=== PATIENT | female | born 1990 | race Caucasian/White ===

== ENCOUNTER 2022-09-17 07:39 | Emergency (ER) | payer BC, SELFPAY ==
[2022-09-17 07:40] VITALS: BP 110/64; PULSE 122; RESP 22; TEMP 36.8; O2SAT 100; BMI 23.3
--- NOTE | 2022-09-17 07:52 | EDS_ITS ---
HPI HPI - Female History of Present Illness Chief Complaint: Vag Bld, Preg Informant: patient Pain Pain: Positive for Pelvic Pain Onset: Yesterday Context: Sudden Onset Timing: Intermittent Quality: Positive for Cramping Location: RLQ, LLQ, Suprapubic and Back Worsened by: - (Nothing) Relieved by: - (Warm bath) Bleeding Issue: Positive for Vaginal bleeding Onset: Yesterday Context: Gradual Onset Current Severity: Similar to period Maximum Severity: Similar to period Associated Symptoms Associated Symptoms: Negative for Dysuria, Frequency or Hematuria Test: Positive P: 1 Ab: 0 Narrative Narrative: Patient presents with vaginal bleeding and pelvic pain that began yesterday. Patient describes her pain as cramping. Patient states that has been intermittent. Patient states that when it began yesterday was constant for several hours then improved. Patient states it has been intermittent since that time. Patient states her pain is in her lower back and pelvic area. Patient states he did get a little bit better with a warm bath. Patient states she has been having some vaginal bleeding that is similar to her normal menstrual period. Patient is 2 para 1. Patient states she is approximately 13 weeks . PFSH PFSH Medical History no medical history no medical history Home Medications vitamin-ferrous fumarate 40 mg iron-folic acid 1 mg tablet 1 tab PO DAILY 09/17/22 [History Last Taken Unknown] Allergy/AdvReac Type Severity Reaction Status Date / Time Penicillins AdvReac Hives Verified 09/17/22 07:42 Family History no significant family his Surgical History (Updated 09/17/22 @ 07:[address] Dariel Castellano DO) H/O section Surgical History no surgical history Social History Smoking Status: Never smoker ROS ROS ED Constitutional Constitutional ED: Reports chills and subjective; Denies fever(s) Eyes Eyes: Denies blurry vision or change in vision ENT ENT ED: Denies rhinorrhea or sore throat Cardiovascular Cardiovascular: Denies chest pain or palpitations Respiratory/Chest Respiratory/Chest: Reports cough; Denies dyspnea Gastrointestinal Gastrointestinal: Reports abdominal pain; Denies nausea or vomiting Genitourinary Genitourinary ED: Denies dysuria or hematuria Musculoskeletal Musculoskeletal: Reports back pain; Denies neck pain Integumentary Denies abscess or rash Neurologic Neurologic: Denies headache(s) or weakness Allergic/Immunologic Allergic/Immunologic ED: Denies mouth swelling or urticaria EXAM Physical Exam Const Vital Signs: 09/17/22 07:40 09/17/22 09:51 Temperature 98.2 F Temperature Source Temporal Pulse Rate 122 H 110 H Respiratory Rate 22 H 18 Blood Pressure 110/64 108/62 Blood Pressure Mean 79 77 Pulse Ox 100 98 Oxygen Delivery Method Room Air Room Air Positive well nourished and well developed General Appearance ED: well developed HEENT Reports moist mucous membranes Neck supple and no JVD Resp normal respiratory effort and clear to auscultation bilaterally Cardio regular rate, regular rhythm and no murmurs GI normal to inspection, nondistended, normoactive bowel sounds Palpation: soft and tender LLQ, RLQ and suprapubic; Negative for guarding Extremity normal to inspection General Extremety ED: Negative for edema or tenderness General Extremity: Negative for edema Neuro oriented x3, CN's II-XII intact bilaterally and no sensory deficits noted Sensorium / Orientation: alert Motor Exam: strength 5/5 throughout Psych mental status grossly normal Skin no rashes or lesions noted MDM MDM MDM Narrative Medical decision making narrative: Differential diagnosis includes threatened miscarriage, urinary tract infection, and hemorrhagic cystitis. CBC will be obtained to assess for leukocytosis and anemia. Urinalysis will be obtained to assess for urinary tract infection or hematuria. Blood type and Rh will be obtained to assess for Rh status. Pelvic ultrasound will be obtained to assess for viability. Quantitative hCG will be obtained to assess for status. Lab Data Attestation: I reviewed the patient's lab results. Lab results narrative: CBC was reviewed and showed a mild leukocytosis of 13.3. This is likely due to the . Blood type was reviewed and was O+. Quantitative hCG was reviewed and was 62,173. Urinalysis was reviewed. Ketones were 150. Leukocyte esterase was 500. There were 5-10 white blood cells but 5-10 epithelial cells. There is 1+ bacteria. Urine culture was ordered. Labs: Laboratory Results - last 24 hr 09/17/22 09/17/22 09/17/22 07:55 07:55 07:55 WBC 13.3 H RBC 4.34 Hgb 13.5 Hct 39.6 MCV 91.2 MCH 31.1 MCHC 34.1 RDW Std Deviation 41.1 RDW Coeff of Gildardo 12.4 Plt Count 191 MPV 10.2 Immature Gran % (Auto) 0.600 Neut % (Auto) 84.5 H Lymph % (Auto) 8.7 L [place] % (Auto) 5.8 Eos % (Auto) 0.2 Baso % (Auto) 0.2 Absolute Neuts (auto) 11.2 H Absolute Lymphs (auto) 1.15 Nucleated RBC % 0 HCG, Quant 53771 H Urine Color Urine Clarity Urine pH Ur Specific [place] Urine Protein Urine Glucose (UA) Urine Ketones Urine Occult Blood Urine Nitrite Urine Bilirubin Urine Urobilinogen Ur Leukocyte Esterase Urine RBC Urine WBC Ur Squamous Epith Cells Urine Bacteria Urine Mucus Blood Type O POSITIVE 09/17/22 08:45 WBC RBC Hgb Hct MCV MCH MCHC RDW Std Deviation RDW Coeff of Gildardo Plt Count MPV Immature Gran % (Auto) Neut % (Auto) Lymph % (Auto) [place] % (Auto) Eos % (Auto) Baso % (Auto) Absolute Neuts (auto) Absolute Lymphs (auto) Nucleated RBC % HCG, Quant Urine Color Yellow Urine Clarity Clear Urine pH 6.0 Ur Specific [place] 1.015 Urine Protein 15 H Urine Glucose (UA) Normal Urine Ketones 150 A* Urine Occult Blood 250 H Urine Nitrite Negative Urine Bilirubin Negative Urine Urobilinogen Normal Ur Leukocyte Esterase 500 H Urine RBC 0-5 SEEN Urine WBC 5-10 SEEN Ur Squamous Epith Cells 5-10 SEEN Urine Bacteria 1+ Urine Mucus 0 SEEN Blood Type Radiography Diagnostic Testing: Clinical Impression(s) from Imaging Studies Obstetrics Ultrasound 09/17/22 07:59 IMPRESSION: Single living intrauterine with an estimated gestational age of 13 weeks 4 days. No placenta previa. Closed cervix. Electronically Signed: Elen Lanza MD at 9:59 EDT , Pelvic ultrasound was obtained. There is a single living intrauterine with a gestational age of 13 weeks 4 days. Cervix was closed. There is no placenta previa. heart rate was 162. This was interpreted by the radiologist and was also independently reviewed by myself. Management Discussion w/another healthcare provider: Threshing Department Supervisor (Dr. Frias who was covering for Dr. Donahue) Treatment and Re-Evaluation Narrative: Patient was advised of her findings. Patient was instructed to have complete pelvic rest. Case was discussed with Dr. Jenifer Frias from [facility]. She will follow-up with the patient in the office next week. She will also follow-up with the urine culture results. Patient was instructed to return if worse in any way. Patient understood and was agreeable with the plan. All questions were answered. Discharge Plan Triage Chief Complaint: Vag Bld, Preg ED Provider: Dariel Castellano Dx/Rx/DC Orders Clinical Impression: Threatened miscarriage, Instructions: ED Possible Miscarriage ... Prescriptions: No Action Care 40 mg iron-1 mg Tablet 1 tab PO DAILY Primary Care Provider: Care Physician,No Primary Referrals: Monet Bain MD [Med Staff - Active Staff] - 2 Days Disposition Disposition: Home, Self Care
--- NOTE | 2022-09-17 07:59 | US_ITS ---
HISTORY: Threatened miscarriage. LMP: 06/15/2022. TECHNIQUE: Transabdominal pelvic ultrasound was performed. 118 images. COMPARISON: None. FINDINGS: UTERUS: 12.8 x 7.9 x 9.9 cm. CERVIX: Closed. RIGHT OVARY: 1.6 x 2.9 x 2.9 cm with vascular flow demonstrated. No adnexal masses. LEFT OVARY: 1.4 x 1.7 x 1.4 cm with vascular flow demonstrated. No adnexal masses. FREE FLUID: None. INTRAUTERINE GESTATIONAL SAC: Single, unremarkable contour. Mean sac diameter 6.8 cm corresponding to 13 weeks 2 days. POLE: [place]-rump length 7.5 cm corresponding to 13 weeks 4 days. Estimated delivery date 03/22/2023. HEART MOTION: 162 bpm. PLACENTA: Anterior. No placenta previa. US/Init OB < 14Wks US IMPRESSION: Single living intrauterine with an estimated gestational age of 13 weeks 4 days. No placenta previa. Closed cervix. Electronically Signed: Elen Lanza MD at 9:59 EDT ,
[2022-09-17] MEDS: 0.9% Normal Saline 1,000 ML 1000 ML IV (08:05)
[2022-09-17 08:12] LABS: Absolute Lymphocyte Count 1.15 X10^3/uL (0.83-4.51); Absolute Neutrophil Count 11.2 X10^3/uL (2.0-7.7); Basophil# 0.02 X10^3/uL; Basophil% 0.2 % (0-1); Eosinophil# 0.02 X10^3/uL; Eosinophils% 0.2 % (0-5); Hematocrit 39.6 % (37-47); Hemoglobin 13.5 g/dL (12.0-15.0); Lymphocyte # 1.15 X10^3/ul (0.83-4.51); Lymphocyte % 8.7 % (19-41); Mean Corp Hgb Conc 34.1 g/dL (32-36); Mean Corpuscular Hgb 31.1 pg (27.0-32.0); Mean Corpuscular Volume 91.2 fL (81-99); Mean Platelet Vol. 10.2 fl (6.2-12.0); Monocyte# 0.77 X10^3/uL; Monocyte% 5.8 % (0-10); NRBC Flagged by Analyzer 0 % (0-5); Neutrophil # 11.23 X10^3/uL (2.7-7.7); Neutrophil % 84.5 % (47-70); Platelet Count 191 K/mm3 (150-450); RBC Distribution Width CV 12.4 % (11.6-14.6); RBC Distribution Width SD 41.1 fl (35.1-43.9); Red Blood Count 4.34 M/mm3 (4.2-5.4); White Blood Count 13.3 K/mm3 (4.4-11.0)
[2022-09-17] MEDS: Morphine 4 MG/ML Syringe IV (08:46)
[2022-09-17 08:49] LABS: Mucous, Urine 0 SEEN /hpf (<or=2+)
[2022-09-17 08:52] LABS: hCG Titer Quant., Serum 62173 mIU/mL (1-3)
[2022-09-17 09:18] LABS: Glucose, Dipstick Normal (Normal); Leukocyte Esterase-Dipstick 500 /ul (Negative); Nitrite-Dipstick Negative (Negative); Occult Blood-Urine 250 /ul (Negative); Protein-Dipstick 15 mg/dl (Negative); Specific Gravity, Urine 1.015 (1.002-1.030); Urine Bilirubin Dipstick Negative (Negative); Urine Urobilinogen Normal (Normal)
[2022-09-17 09:19] LABS: Color, Urine Yellow (Yellow); Urine Clarity Clear (Clear)
[2022-09-17 09:22] LABS: Ketone-Dipstick 150 mg/dl (Negative)
[2022-09-17 09:43] LABS: Bacteria 1+ /hpf (None Seen); Red Blood Cells-Urine 0-5 SEEN /hpf (0-5); Squamous Epithelial Cells - UA 5-10 SEEN /hpf (5-10); White Blood Cells 5-10 SEEN /hpf (0-5)
[2022-09-17 09:51] VITALS: BP 108/62; PULSE 110; RESP 18; O2SAT 98
[2022-09-17] MEDS: Acetaminophen 500 MG Tablet 1000 MG PO (10:44)
--- NOTE | 2022-09-17 10:51 | ED.RN ---
chargeback specialist called OB RN for reassurance to provide to patient and . pt and are appreciative of care.
== END 2022-09-17 10:53 | disposition home or self-care (01) ==
PROVIDERS: Emergency Provider Emergency Medicine; Visit Provider Emergency Medicine
DX: O20.0 Threatened abortion (principal); Z3A.13 13 weeks gestation of pregnancy
CPT/HCPCS: 76801; 81001; 84702; 85025; 86900; 86901; 87086; 87088; 96361; 96374; 99284; J7030; A4216

== ENCOUNTER 2022-09-18 04:05 | Day surgery (SDC) | payer BC, SELFPAY ==
[2022-09-18] VITALS (10 sets, daily range): BP systolic 81–125; BP diastolic 48–89; PULSE 76–123; RESP 14–18; TEMP 36.2–37.4; O2SAT 97–100; BMI 23.8
--- NOTE | 2022-09-18 | POC_PTH ---
PATIENT: DEREK FLOOD LOC: [facility] [place] U#:[id number] AGE/SX: 31/F ROOM: RE09/18/[address]: Dr. Monet Bain, MDDOB: 1990 BED: DIS: 09/18/2022 SPEC #: [id number] RECD: 09/18/22 10:10 STATUS: VETO JOSE #: [id number] MONIQUE: 09/18/22 00:[address]: Monet Bain DEPT: SURGICAL PATHOLOGY RECD BY: Mele Zhang ENTERED: 09/18/22 10:10 SP TYPE: PROD CONC OTHR DR: No Primary Care Phys Tissues: Product of conception, NOS Procedures: Surgery Specimen Level IV HEADER OPERATION: Suction dilation and curettage PRE-OP DIAGNOSIS: Retained products of conception TISSUE SUBMITTED: Products of conception MICROSCOPIC DIAGNOSIS Endometrium, curettage: Chorionic villi, decidualized stroma and trophoblastic cells consistent with products of conception. AM:piyush 09/19/2022 MICROSCOPIC DESCRIPTION Slides are reviewed. GROSS DESCRIPTION Received in fixative is one container labeled with the patient's name and designated products of conception. The specimen consists of multiple irregular fragments of pink-elliott soft tissue that in aggregate measure 12.0 x 7.0 x 2.0 cm. parts are not grossly recognized. Toilet And Laundry Soap Supervisor portions are submitted in two cassettes. / AM:piyush 09/18/2022 TC:5 CPT: 09031
--- NOTE | 2022-09-18 04:34 | US_ITS ---
EXAM: US , LIMITED CLINICAL INDICATION: and bleeding -- 13 weeks with pain and bleeding TECHNIQUE: Real-time limited ultrasound of the maternal uterus with image documentation. This report was created using [employer] report generation technology. COMPARISON: US Limited dated 09/17/2022 FINDINGS: GESTATIONAL AGE: Established gestational age of 13 weeks 4 days. POSITION: Single fetus in cephalic presentation. HEART RATE: cardiac rate is 164 bpm. PLACENTA: Anterior placenta without previa. AMNIOTIC FLUID: Amniotic fluid volume is normal. CERVIX: Cervix measures approximately 1.2 cm in length by endovaginal scan with funneling of the endocervical canal indicative of incompetent cervix. FREE FLUID: Fluid and solid tissue within the vaginal cavity suggestive of clot. US/OB Limited (No Biometrics) IMPRESSION: Single live 13 week 4 day intrauterine gestation. Evidence of cervical incompetence. Electronically Signed: Samuel Leon MD at 8:22 EDT ,
--- NOTE | 2022-09-18 04:39 | ED.VIS.FEGU ---
HPI HPI - Female History of Present Illness Chief Complaint: Abd Pain Detail of Chief Complaint: Pelvic pain and 13 weeks . With vaginal bleeding. Informant: patient Pain Pain: Positive for Pelvic Pain Onset: Today and Yesterday Context: Gradual Onset Timing: Intermittent Quality: Positive for Cramping Current Severity: Moderate Maximum Severity: Moderate Bleeding Issue: Positive for Passing clots Onset: Today and Yesterday Context: Gradual Onset Timing: Intermittent Current Severity: Mild Associated Symptoms Associated Symptoms: Negative for Dysuria, Frequency, Urgency or Hematuria Test: Positive Sexually: Positive for Active P: 1 Ab: 0 Narrative Narrative: 31-year-old female Ana past medical history. G2, P1 Ab0. Prior . States she is about 13 weeks . [facility] here in [facility]. Yesterday she started having pelvic cramping and some mild bleeding with small clots. She was seen in the emergency department had a work-up at that time. Blood type is O+. Ultrasound showed a single live IUP. Complaining of more spotting and worse cramping. Denies any dysuria or fever. Prior to yesterday she was having no problems with the . Prior similar symptoms: No Recent Illness/Hospitalization: No PFSH PFSH Home Medications vitamin-ferrous fumarate 40 mg iron-folic acid 1 mg tablet 1 tab PO DAILY 09/17/22 [History Last Taken Unknown] Allergy/AdvReac Type Severity Reaction Status Date / Time Penicillins AdvReac Hives Verified 09/17/22 07:42 Surgical History H/O section Social History Smoking Status: Never smoker ROS ROS ED ROS Narrative Vaginal bleeding. . Pelvic cramping. Review of Systems ROS Unobtainable: Denies due to encephalopathy Constitutional Constitutional ED: Denies chills or fever(s) Eyes Eyes: Denies blurry vision ENT ENT ED: Denies ear pain Cardiovascular Cardiovascular: Denies chest pain Respiratory/Chest Respiratory/Chest: Denies cough or dyspnea Gastrointestinal Gastrointestinal: Denies abdominal pain or constipation Genitourinary Genitourinary ED: Denies dysuria Musculoskeletal Musculoskeletal: Denies arthralgias Integumentary Denies abscess Neurologic Neurologic: Denies headache(s) Psychiatric Psychiatric: Denies anxiety Endocrine Endocrinology: Denies heat intolerance Hematologic/Lymphatic Hematologic/Lymphatic: Denies easy bleeding Allergic/Immunologic Allergic/Immunologic ED: Denies mouth swelling or tongue swelling EXAM Physical Exam Narrative Exam Narrative: When I female vital signs are stable. She is afebrile. She does not look septic or toxic. She is complaining of pelvic pain. H EENT exam unremarkable. Lungs are clear. Heart tachycardic rate 120 no murmur. Abdomen soft nondistended normal bowel sounds no peritoneal signs. Suprapubic mild tenderness. Moving all 4 extremities. Nontender no edema. Back nontender. Neurologically she is awake alert. Const Vital Signs: 09/18/22 04:05 09/18/22 06:00 Temperature 97.8 F Temperature Source Temporal Pulse Rate 123 H Respiratory Rate 16 Blood Pressure 125/89 H 97/61 Blood Pressure Mean 101 73 Pulse Ox 99 Oxygen Delivery Method Room Air Positive well nourished and well developed; Negative for obese, cachectic, contractures or unkempt General Appearance ED: well developed and NAD; Negative for unkempt, cachectic, contractures or pallor Nutritional Appearance: Negative for cachectic or obese HEENT Reports moist mucous membranes Negative for trauma or tenderness Eyes PERRL and EOMs intact bilaterally General Eye ED: Negative for pale conjunctiva or scleral icterus Neck no lymphadenopathy, supple and no JVD General: Negative for other Thyroid: Negative for tender Chest Wall inspection of chest normal and palpation of chest normal Chest: Negative for other Resp normal respiratory effort and clear to auscultation bilaterally Effort and Inspection: Negative for pain with movement Auscultation: Negative for rales, rhonchi or wheezes Cardio regular rhythm, S1 normal heart sound, no murmurs and no JVD; Negative for regular rate Rate: tachycardic Rhythm: Negative for abnormal rhythm GI normal to inspection, nondistended, normoactive bowel sounds, soft to palpation, non-distended and no masses; Negative for non-tender GI Narrative: Mild suprapubic tenderness. Auscultation: normoactive bowel sounds Palpation: tender; Negative for guarding or rigid Back/Spine no CVA tenderness General Back: Negative for CVA tenderness Cervical Spine: Negative for cervical spine tenderness Thoracic Spine / Upper Back: Negative for thoracic spinal tenderness Lumbar Spine / Lower Back: Negative for lumbar spinal tenderness Sacrum: Negative for other Extremity normal to inspection General Extremety ED: Negative for edema General Extremity: Negative for edema Neuro oriented x3 Sensorium / Orientation: alert, oriented to person, oriented to place and oriented to time; Negative for confused, lethargic or stuporous Motor Exam: strength 5/5 throughout Psych mental status grossly normal Appearance: Negative for unkempt Attitude: No agitated Speech: No other Mood & Affect: Negative for depressed or tearful Skin no rashes or lesions noted and no wounds General Skin Exam: Negative for jaundice or pallor Rashes: No rashes noted Trauma: Negative for other MDM MDM MDM Narrative Medical decision making narrative: G2, P1 Ab0 female. With pelvic pain and vaginal bleeding. Doximity 13 weeks . Was seen yesterday had a negative work-up. Concern was for a threatened miscarriage. Clinically I suspect the same tonight. She will be treated with morphine for pain Zofran. Screening labs. And a repeat ultrasound be obtained. She had a quant done yesterday. She had a blood type done yesterday there is do not need to be repeated. We will do a pelvic exam. Pelvic exam done with female nurse present in the room. Patient is emotionally upset and tearful. On speculum exam she has blood coming from the cervix. No significant clots. No discharge. On bimanual exam she has uterine tenderness. No adnexal tenderness. No adnexal mass. Patient was initially given morphine for pain. Her blood pressures in the high 90s. She will be given a dose of fentanyl at this time. Plus a liter normal saline. Patient's been treated with morphine and 3 doses of fentanyl. She has pain consistent with contractions. Clinically I think this is a threatened miscarriage. I will speak to ACUTE DIALYSIS NURSE on-call. Patient can be discharged home. I will have them evaluate her for admission. Lab Data Attestation: I reviewed the patient's lab results. Lab results narrative: CBC shows a white count of 14.4. H&H 12.8 and 37.1. Platelets of 169. Electrolytes show potassium 3.3. Gap of 9. Normal BUN and creatinine. Glucose 114. No significant change from the prior labs. Transvaginal pelvic ultrasound shows a single live IUP. The is in the lower uterine segment. Fetus has heart rate in 130s. I discussed the ultrasound with the entry level lab technician. Awaiting for the formal read. CAT scan showed incompetent cervix otherwise no acute intra-abdominal pathology as read by the radiologist. Reviewed by me. Radiologist called me about his interpretation of the CAT scan. Labs: Laboratory Results - last 24 hr 09/18/22 09/18/22 04:40 04:40 WBC 14.4 H RBC 4.10 L Hgb 12.8 Hct 37.1 MCV 90.5 MCH 31.2 MCHC 34.5 RDW Std Deviation 40.9 RDW Coeff of Gildardo 12.5 Plt Count 169 MPV 10.2 Sodium 137 Potassium 3.3 L Chloride 105 Carbon Dioxide 23.0 Anion Gap 9 BUN 5 L Creatinine 0.58 Estim Creat Clear Calc 118.39 Est GFR (MDRD) Af Amer 158 Est GFR (MDRD) Non-Af 130 BUN/Creatinine Ratio 8.7 L Glucose 114 H Calcium 8.8 Radiography Diagnostic Testing: Clinical Impression(s) from Imaging Studies Abdomen/Pelvis CT 09/18/22 07:03 IMPRESSION: 1. Cervical incompetence. 2. Normal appendix. Electronically Signed: Samuel Leon MD at 7:55 EDT , Discharge Plan Dx/Rx/DC Orders Clinical Impression: Pelvic pain, Threatened miscarriage, Vaginal bleeding, First trimester Disposition Disposition: [facility]
[2022-09-18] MEDS: morphine 8 MG/ML Syringe 6 MG IV (04:44)
[2022-09-18] MEDS: Ondansetron 4 MG/2 ML Vial IV (04:44)
[2022-09-18 04:51] LABS: Hematocrit 37.1 % (37-47); Hemoglobin 12.8 g/dL (12.0-15.0); Mean Corp Hgb Conc 34.5 g/dL (32-36); Mean Corpuscular Hgb 31.2 pg (27.0-32.0); Mean Corpuscular Volume 90.5 fL (81-99); Mean Platelet Vol. 10.2 fl (6.2-12.0); Platelet Count 169 K/mm3 (150-450); RBC Distribution Width CV 12.5 % (11.6-14.6); RBC Distribution Width SD 40.9 fl (35.1-43.9); White Blood Count 14.4 K/mm3 (4.4-11.0)
[2022-09-18 05:10] LABS: Anion Gap 9 (5-15); BUN 5 mg/dL (7-18); BUN/Creat Ratio 8.7 RATIO (10-20); Calcium,Total 8.8 mg/dL (8.5-10.1); Chloride 105 mmol/L (98-107); Creatinine, Serum 0.58 mg/dL (0.55-1.02); EST Glomerular Filtration Rate 130 mL/min (>60); Est Glom Filt Rate - Afr Amer 158 mL/min (>60); Estimated Creatinine Clearance 118.39 ml/min; Glucose 114 mg/dL (74-106); Potassium 3.3 mmol/L (3.5-5.1); Sodium Level 137 mmol/L (136-145)
[2022-09-18] MEDS: 0.9% Normal Saline 1,000 ML 999 ML IV (06:03)
[2022-09-18] MEDS: fentaNYL 100 MCG/2 ML Ampul 25 MCG IV (06:04)
--- NOTE | 2022-09-18 07:03 | CT_ITS ---
We are attempting to reach an attending provider to discuss findings. An addendum with communication details will be sent when the communication is complete. EXAM: CT ABDOMEN AND PELVIS WITH INTRAVENOUS CONTRAST CLINICAL INDICATION: lower abd pain and TECHNIQUE: Helically acquired images were obtained of the abdomen and pelvis with intravenous contrast. This CT exam was performed using one or more of the following dose reduction techniques: automated exposure control, adjustment of the mA and/or kV according to patient size, and/or use of iterative reconstruction technique. This report was created using [employer] report [employer] technology. CONTRAST: IV 100mL Isovue-370 COMPARISON: None. FINDINGS: LOWER THORAX: Normal. Lung bases are clear. No cardiomegaly. No pericardial effusion. ABDOMEN: LIVER: Normal. Homogeneous. No focal mass. GALLBLADDER AND BILE DUCTS: Normal. No calcified gallstones. No gallbladder distention or wall edema. No intra- or extrahepatic biliary ductal dilation. PANCREAS: Normal. No focal cystic or solid mass. SPLEEN: Normal. Normal size without focal cystic or solid mass. ADRENALS: Normal. No nodules. KIDNEYS AND URETERS: Normal. Normal renal size and position. No hydronephrosis. STOMACH AND BOWEL: Normal. No bowel distention. No focal inflammatory change. PELVIS: APPENDIX: Appendix is visualized and normal in appearance. BLADDER: Normal. REPRODUCTIVE: Cervix measures 16 mm in length associated with 6 mm wide endocervical canal. Small amount of fluid is noted within the vaginal fornix. Appearance is consistent with cervical incompetence. ABDOMEN and PELVIS: INTRAPERITONEAL SPACE: Normal. No ascites or other fluid collection. No free air. BONES/JOINTS: No suspicious lytic or blastic abnormality. SOFT TISSUES: Small fat-containing umbilical hernia is present. VASCULATURE: Normal. Abdominal aorta is non-dilated. LYMPH NODES: Normal. No enlarged lymph nodes. CT/Abdomen/Pelvis W IV Cont ONLY IMPRESSION: 1. Cervical incompetence. 2. Normal appendix. Electronically Signed: Samuel Leon MD at 7:55 EDT ,
[2022-09-18] MEDS: fentaNYL 100 MCG/2 ML Ampul 50 MCG IV (07:07)
--- NOTE | 2022-09-18 08:25 | ED.RN ---
rn at the bedside to administer more pain meds, pt BP 84/54. Dr Liu notified at this time, Dr. Barrow also notified at bedside. Pt also noted to have hives all over back. PT denies eczema or psoriasis. This RN was not RN who administed 1st dose of fentanyl, unable to identify if rash is from fentanyl of morphine, pt also unsure.
--- NOTE | 2022-09-18 08:27 | PCM.HP.BLA ---
History and Physical Date of Admission: 09/18/22 @ 13.2 weeks presents to ER twice in under 24 hrs for complaints of pain and bleeding. pt reports severe pain, having contractions every couple of minutes. bleeding heavy. pt reports no fevers, no other abnormal vaginal discharge. Obhx; 1 vaginal delivery GEN: female appears to be in severe distress- writhing in pain on bed despite pain meds given. abd: soft, tender to touch VE: speculum: Moderate amount of blood with tissue pieces noted. Cervix 1cm, thin and ballooning lower segment. a/p @ 13.2 weeks- Inevitable 1) reviewed options with patient and including - expectant mgmt with pain control, transfer to tertiary care center, or proceed with emergent D&C. pt and agree to proceed here due to uncontrolled pain and bleeding 2) pt counseled on risks of surgery including but not limited to bleeding, infection, perforation of uterus with subsequent injury to pelvic structures, need for transfusion, retained POC. pt signed consent and wishes to proceed. 3) OR notified. Ultrasound to be in room- uterotonics ordered and reviewed with or staff to have available.
--- NOTE | 2022-09-18 09:09 | SUR.PREOP ---
as patient coming down from ER- she feels a gush and that something is there between legs- dr hutchinson at bedside and surgery nurses called for supplies. pt did deliver 13 week fetus- umbilical chord cut per dr. bud umaña and paperwork done with pt and pt's . family to take fetus home from hospital today
--- NOTE | 2022-09-18 09:12 | DCINST_ITS ---
Discharge Instructions Procedure D&C Diet Discharge Diet: No restrictions Activity May resume sexual activity in: 1 week Dressing / Incision Call your doctor if you observe: Fever of 101 or Higher, Inability to urinate, Using more than 1 pad per hour and Uncontrolled pain Follow Up Care Please Follow Up With: Monet Bain MD When: 1-2 weeks post OP if you need an appointment please call [phone] Test Results: Test results from this visit will be discussed in further detail at your follow- up appointment, if applicable. Discharge Plan Admission Attending Provider: Monet Bain Primary Care Provider: Care Physician,Jemima Primary Discharge Orders/Prescriptions Prescriptions: No Action Care 40 mg iron-1 mg Tablet 1 tab PO DAILY Referrals / Follow Up: Care Physician,No Primary [Primary Care Provider] - Disposition Disposition (needs filled in before D/C Order can be placed): Home, Self Care
[2022-09-18] MEDS: Lubricating Jelly 60 GM Tube 30 GM (09:22)
[2022-09-18] MEDS: Methylergonovine 0.2 MG/ML Ampul IM (09:32)
--- NOTE | 2022-09-18 09:35 | PCM.OPRPT ---
Problems Associated Problem List Diagnoses (1) Incomplete : (2) Retained products of conception following : (3) 13 weeks gestation of : (4) Bleeding in early : Report of Operation Date of Procedure: 09/18/22 Pre-Operative Diagnosis: Retained POC , Incomplete 13.2 weeks gestation Post-Operative Diagnosis: Same Surgery/Procedure Performed:: Suction D&C Description of Surgical Findings:: Fetus was delivered spontaneously prior to go to OR. Placenta was retained. Methergine IM given after suction D&C Surgeon: Monet Bain Type of Anesthesia: MAC Special Medications: Methergine Specimen's removed: Retained POC- placenta Drains: none Estimated Blood Loss (mL): 50 Fluids Replaced: 800 Description of Procedure: After informed consent was obtained patient was taken to OR and placed in supine position. Anesthesia was given. patient was placed in yellow fin stirrups and prepped and draped in normal sterile fashion. bladder was drained with straight catheter with approximately 100cc of clear yellow urine expelled. Weighted speculum placed in posterior fornix of vaginal, single tooth tenaculum was used to gently grasped anterior lip of cervix. . Cervix was already dilated. placenta was noted at cervical OS- gentle traction and twisting motion was performed to deliver placenta. Next under ultrasound guidance a 9mm cape verdean suction catheter was placed. suction curettage performed until no tissue was expelled and cavity was deemed empty. The tissue was then sent to pathology for examination. Endometrial stripe 1.2cm- no signs of retained tissue noted. No complications. At this time procedure was deemed complete and successful. Tenaculum removed, speculum removed. steady slow streat of blood noted- methergine IM given. Good hemostasis appreciated. Vaginal sweep was negative. Instrument and lap count correct x 2. I anticipate normal postoperative course. will get doxycycline in recovery. Grafts/Implants Used: none Procedure Start Time: 09:22 Procedure Stop Time: 09:33 Complications none Admit VTE Documentation VTE Present on Admission: Yes VTE Mechan Device Prophylaxis: SCD's VTE Pharm Prophylaxis ordered?: No Reason prophylaxis not ordered:: Procedure Not Indicated
[2022-09-18] MEDS: 0.9% Normal Saline 1,000 ML 15 ML IV (09:55)
[2022-09-18] MEDS: Doxycycline 100 MG CAPSULE 200 MG PO (10:37)
[2022-09-18] MEDS: HYDROcodone Bitartrate/Apap 5/325 Tablet PO (10:40)
== END 2022-09-18 11:29 | disposition home or self-care (01) ==
LOC: ED 08:24 → SDC 08:33 → AC 08:34
PROVIDERS: Emergency Provider Emergency Medicine; Visit Provider Obstetrics & Gynecology
PROC: (CPT 59812; principal; 2022-09-18 08:15)
DX: O03.4 Incomplete spontaneous abortion without complication (principal); O26.891 Other specified pregnancy related conditions, first trimester; R10.2 Pelvic and perineal pain; Z3A.13 13 weeks gestation of pregnancy
CPT/HCPCS: 59812; 01965; 74177; 76815; 80048; 85027; 88305; 99284; J7030; Q9967; A4216; J2405

== ENCOUNTER 2023-08-18 22:55 | Outpatient (CLI) | payer BC, SELFPAY ==
[2023-08-18 23:20] VITALS: BP 118/76; PULSE 102
[2023-08-18 23:26] VITALS: BP 118/76; PULSE 104; TEMP 36.4; O2SAT 97
[2023-08-19 00:39] LABS: ROM Internal Control Test YES-OK TO RESULT pt. (Internal QC); ROM Patient Test Negative (Negative)
[2023-08-19 02:06] VITALS: BMI 26.9
--- NOTE | 2023-08-19 11:33 | OB.TRI.NOTE ---
HPI - General HPI Narrative DEREK FLOOD, is a 32 F @ 40.1 weeks who presents co SROM PFSH PFSH Home Medications vitamin-ferrous fumarate 40 mg iron-folic acid 1 mg tablet 1 tab PO DAILY 09/17/22 [History Last Taken Unknown] ferrous sulfate 325 mg (65 mg iron) tablet,delayed release 325 mg PO DAILY anemia 08/18/23 [History Last Taken 08/17/23] Allergy/AdvReac Type Severity Reaction Status Date / Time Penicillins AdvReac Hives Verified 08/18/23 23:38 Surgical History H/O section Social History Smoking Status: Never smoker NST FHR Rate Baby A Baseline: 120 Variability:: Moderate Accelerations:: 15 x 15 Decelerations:: Variable (possible late) NST Reactive:: Yes FHR Category:: Category I Uterine Activity:: 20 min at end of tracing - but there were questionable decels when reviewed on paper tracing Assessment & Plan (1) Previous delivery affecting : (2) 40 weeks gestation of : (3) Intact amniotic membranes: PLAN: Plan @ 40.1 weeks- false labor 1) tracing reviewed- called patient to come back for another NST today pt agreeable. 2) ROM plus was negative
[2023-08-19 12:21] VITALS: BP 119/74; PULSE 101; TEMP 36.4; O2SAT 99
[2023-08-19 12:43] VITALS: BP 131/84; PULSE 90
[2023-08-19 12:44] VITALS: PULSE 108; TEMP 36.6; O2SAT 98
[2023-08-19 13:19] LABS: ROM Internal Control Test YES-OK TO RESULT pt. (Internal QC); ROM Patient Test Negative (Negative); Record Kit Lot#, ROM+ k1794
[2023-08-19 14:04] VITALS: BP 125/81; PULSE 96
== END 2023-08-19 01:20 | disposition home or self-care (01) ==
LOC: WPOUT 23:03 → WP 23:04
PROVIDERS: Referring Provider Obstetrics & Gynecology; Visit Provider Obstetrics & Gynecology
DX: O47.1 False labor at or after 37 completed weeks of gestation (principal); Z3A.40 40 weeks gestation of pregnancy
CPT/HCPCS: 59025; 59050; 84112; 99221; G0378

== ENCOUNTER 2023-08-20 00:23 | Inpatient (IN) | payer BC, SELFPAY ==
[2023-08-19 23:56] VITALS: BP 120/80
[2023-08-19 23:57] VITALS: PULSE 114; O2SAT 79
[2023-08-20] VITALS (47 sets, daily range): BP systolic 82–139; BP diastolic 52–92; PULSE 80–119; RESP 15–18; TEMP 36.1–37; O2SAT 82–100; BMI 26.4
[2023-08-20 00:23] LABS: ROM Internal Control Test YES-OK TO RESULT pt. (Internal QC); ROM Patient Test POSITIVE (Negative)
[2023-08-20] MEDS: LACTATED RINGERS 500 ML 999 ML IV ×2 (00:35→04:19)
[2023-08-20 00:48] LABS: Absolute Lymphocyte Count 2.57 X10^3/uL (0.83-4.51); Absolute Neutrophil Count 3.4 X10^3/uL (2.0-7.7); Basophil# 0.01 X10^3/uL; Basophil% 0.2 % (0-1); Eosinophil# 0.02 X10^3/uL; Eosinophils% 0.3 % (0-5); Hematocrit 35.7 % (37-47); Hemoglobin 11.2 g/dL (12.0-15.0); Lymphocyte # 2.57 X10^3/ul (0.83-4.51); Lymphocyte % 39.2 % (19-41); Mean Corp Hgb Conc 31.4 g/dL (32-36); Mean Corpuscular Hgb 26.3 pg (27.0-32.0); Mean Corpuscular Volume 83.8 fL (81-99); Monocyte# 0.53 X10^3/uL; Monocyte% 8.1 % (0-10); NRBC Flagged by Analyzer 0 % (0-5); Neutrophil # 3.41 X10^3/uL (2.7-7.7); Neutrophil % 51.9 % (47-70); Platelet Count 170 K/mm3 (150-450); RBC Distribution Width CV 14.5 % (11.6-14.6); RBC Distribution Width SD 44.2 fl (35.1-43.9); Red Blood Count 4.26 M/mm3 (4.2-5.4); White Blood Count 6.6 K/mm3 (4.4-11.0)
[2023-08-20] MEDS: Lactated Ringers 1,000 ML 50 ML IV (01:15)
[2023-08-20] MEDS: fentaNYL-bupivacaine (epidural) 100 ML BAG EPIDURAL ×2 (01:41→05:47)
[2023-08-20 01:43] LABS: Syphilis Antibodies Non-reactive
--- NOTE | 2023-08-20 04:41 | PCM.HP.OB ---
HPI - General General Date of Admission: 08/20/23 HPI Narrative DEREK FLOOD, is a 32 F @ 40+ weeks who presents c/o SROM and contractions- found to be ruptured and 2-3cm on exam. PFSH PFSH Home Medications vitamin-ferrous fumarate 40 mg iron-folic acid 1 mg tablet 1 tab PO DAILY 09/17/22 [History Last Taken 08/19/23 08:00 1 TAB] ferrous sulfate 325 mg (65 mg iron) tablet,delayed release 325 mg PO DAILY anemia 08/18/23 [History Last Taken 08/17/23 12:00 325 mg] Allergy/AdvReac Type Severity Reaction Status Date / Time Penicillins AdvReac Hives Verified 08/20/23 00:15 Surgical History H/O section [place] teeth removed Social History Smoking Status: Never smoker History Elective abortions Hx Para 1 Spontaneous abortions Hx # Term Pregnancies Ectopic pregnancies Hx # Pregnancies Multiple births # of living children NST FHR Rate Baby A Baseline: 130 Variability:: Moderate Accelerations:: 15 x 15 Decelerations:: None NST Reactive:: Yes FHR Category:: Category I Uterine Activity:: 2-4min Vital Signs Vital Signs Vital Signs: 08/19/23 23:56 08/19/23 23:57 08/19/23 23:57 Temperature Temperature Source Pulse Rate 114 H Blood Pressure 120/80 BP Systolic 120 BP Diastolic 80 Pulse Ox 79 08/20/23 00:00 08/20/23 00:00 08/20/23 00:00 Temperature Temperature Source Temporal Pulse Rate 110 H Blood Pressure 120/80 BP Systolic 120 BP Diastolic 80 Pulse Ox 08/20/23 00:00 08/20/23 00:00 08/20/23 00:43 Temperature 98.6 F Temperature Source Pulse Rate 96 Blood Pressure BP Systolic BP Diastolic Pulse Ox 98 08/20/23 00:43 08/20/23 01:26 08/20/23 01:26 Temperature Temperature Source Pulse Rate 106 H Blood Pressure BP Systolic BP Diastolic Pulse Ox 99 98 08/20/23 01:27 08/20/23 01:27 08/20/23 01:30 Temperature Temperature Source Pulse Rate 104 H 103 H Blood Pressure 118/73 BP Systolic 118 BP Diastolic 73 Pulse Ox 08/20/23 01:30 08/20/23 01:31 08/20/23 01:31 Temperature Temperature Source Pulse Rate 104 H Blood Pressure BP Systolic BP Diastolic Pulse Ox 90 97 08/20/23 01:33 08/20/23 01:33 08/20/23 01:36 Temperature Temperature Source Pulse Rate 98 101 H Blood Pressure 131/73 H BP Systolic 131 BP Diastolic 73 Pulse Ox 08/20/23 01:36 08/20/23 01:37 08/20/23 01:37 Temperature Temperature Source Pulse Rate 100 Blood Pressure 136/86 H BP Systolic 136 BP Diastolic 86 Pulse Ox 100 08/20/23 01:42 08/20/23 01:42 08/20/23 01:42 Temperature Temperature Source Pulse Rate 99 Blood Pressure 136/68 H BP Systolic 136 BP Diastolic 68 Pulse Ox 100 08/20/23 01:48 08/20/23 01:48 08/20/23 01:52 Temperature Temperature Source Pulse Rate 89 Blood Pressure 124/75 H 125/74 H BP Systolic 124 125 BP Diastolic 75 74 Pulse Ox 08/20/23 01:52 08/20/23 01:57 08/20/23 01:57 Temperature Temperature Source Pulse Rate 91 102 H Blood Pressure 120/72 BP Systolic 120 BP Diastolic 72 Pulse Ox 08/20/23 01:58 08/20/23 01:58 08/20/23 02:02 Temperature Temperature Source Pulse Rate 96 Blood Pressure 118/71 BP Systolic 118 BP Diastolic 71 Pulse Ox 100 08/20/23 02:02 08/20/23 02:03 08/20/23 02:03 Temperature Temperature Source Pulse Rate 91 91 Blood Pressure BP Systolic BP Diastolic Pulse Ox 98 08/20/23 02:08 08/20/23 02:08 08/20/23 02:08 Temperature Temperature Source Pulse Rate 88 Blood Pressure 127/71 H BP Systolic 127 BP Diastolic 71 Pulse Ox 100 08/20/23 02:12 08/20/23 02:12 08/20/23 02:12 Temperature Temperature Source Pulse Rate 95 Blood Pressure 122/64 H BP Systolic 122 BP Diastolic 64 Pulse Ox 82 08/20/23 02:13 08/20/23 02:13 08/20/23 02:38 Temperature Temperature Source Pulse Rate 90 Blood Pressure 139/88 H BP Systolic 139 BP Diastolic 88 Pulse Ox 100 08/20/23 02:38 08/20/23 02:38 08/20/23 02:38 Temperature Temperature Source Temporal Pulse Rate 91 Blood Pressure BP Systolic BP Diastolic Pulse Ox 99 08/20/23 02:38 08/20/23 03:39 08/20/23 03:39 Temperature 97.0 F L Temperature Source Pulse Rate 95 Blood Pressure 119/91 H BP Systolic 119 BP Diastolic 91 Pulse Ox 08/20/23 03:39 08/20/23 03:40 08/20/23 03:40 Temperature 97.0 F L Temperature Source Temporal Pulse Rate Blood Pressure BP Systolic BP Diastolic Pulse Ox 98 Weight Weight: 67.585 kg Body Mass Index (BMI) 26.4 Labs Labs Labs: Blood Type O POSITIVE Antibody Screen NEGATIVE Hct 35.7 % (37-47) L Hgb 11.2 g/dL (12.0-15.0) L Obstetrics Ultrasound Syphilis Total Ab Non-reactive Assessment & Plan (1) 40 weeks gestation of : (2) Previous delivery affecting : PLAN: Plan Admit to L&D Mont[place] FHR/TOCO Epidural if requested for pain Monitor VS Anticipate gbs negative
--- NOTE | 2023-08-20 04:43 | PCM.PN.BLA ---
Progress Note pt examined at bedside- during pushing- head 0 station good maternal pushing efforts. variables with pushing, good return to baseline. Moderate variability. continue pushing.
--- NOTE | 2023-08-20 05:50 | PCM.PN.BLA ---
Progress Note pt pushing effectively- head +2 with pushing. no significant caput noted. Pelvis feels adequate. having variables with pushing- good return to baseline. moderate variability. At this time continue pushing- anticipate Vaginal delivery.
--- NOTE | 2023-08-20 06:25 | PCM.PN.BLA ---
Progress Note Pushing with patient at bedside. Head was on the perineum +3 station. Discussion about use of Kiwi vacuum for delivery due to maternal exhaustion and recurrent variable decelerations. Vacuum was placed on the flexion point attempt twice without movement of the head. At this point discussion with the patient regarding proceeding with a primary section. Patient agrees. Discussed risks and benefits with the patient. Attempted to disengage the head difficult. pillow will be used. OR team notified. Preoperative antibiotics ordered.
[2023-08-20] MEDS: Sodium Citrate/Citric Acid 30 ML UDC PO (06:29)
[2023-08-20] MEDS: Acetaminophen 500 MG Tablet PO (06:30)
[2023-08-20] MEDS: Cefazolin 2 GM in 0.9% Normal Saline (100mL Bag) 100 ML IV (06:40)
[2023-08-20] MEDS: Azithromycin 500 MG in Dextrose 5%-Water (250mL Bag) 250 ML 250 MG IV (06:49)
--- NOTE | 2023-08-20 07:29 | OP.PCM_ITS ---
Details Operative Information Date of Procedure: 08/20/23 Pre-Operative Diagnosis: Arrest of Descent, CPD, Previous CS, desires sterilization Post-Operative Diagnosis: Same Indications Narrative: Patient progressed to fully dilated was pushing for approximately 2-1/2 hours attempted vacuum with no descent of the head at +3 station. Maternal exhaustion-with no further descent of the head- patient was counseled on options and wished to proceed with a repeat section. Classification: PRINCE Procedure Type: low transverse weight recorder #1: Joshua Garcia weight recorder #2: Jenifer Frias Type of Anesthesia: Epidural Antibiotic Given: Ancef 2 grams IV x1 and Zithromax 500 mg/5 mL X1 Drain: Ramires to straight drain Estimated Blood Loss: 600 Fluids Replaced: 1000 Procedure Start Time: 06:53 Time of Delivery: 06:55 Findings Description of Procedure: Pt taken to OR- She was placed in the supine position. vaginal prep done- Pillow placed- She was then prepped and draped in normal sterile fashion. Once epidural anesthesia was found to be adequate skin incision was made with a scalpel in a Pfannenstiel fashion. It was carried down to the underlying layer of the fascia. Fascia was then incised midline with scapel and extended laterally using gentle traction. At this time the rectus muscles were in the midline bluntly. Using blunt force the peritoneum was then entered. At this time the vesicouterine peritoneum was identified. Uterine incision was made in a low transverse fashion with the scalpel and then entered bluntly. Gentle opposing traction was placed to extend the uterine incision. Infant's head was then brought to the uterine incision was delivered atraumatically followed by the rest 's body. was then handed to the waiting nursery team. The placenta was then removed with gentle traction. The uterus was removed from the intra-abdominal cavity is wrapped in a moist lap. uterus was cleared of all clots and debris using a moist lap. Ring clamps were placed on the uterine angles. Extension down right side- repaired with #1 Vicryl suture - this suture was then used in a running locked fashion. Second layer - with interrupted figure of eight using 1-0 Vicryl for hemostasis At this time then the uterus was placed back into abdominal cavity uterine incision was evaluated and noted to be of good hemostasis. Tubes and ovaries were evaluated they were normal. The tubes were grasped in an avascular area with the [place] and ligasure use to coagulate and ligate along mesoalpinx- repeat on other side. Great hemostasis was appreciated at this time the uterine incision was again evaluated good hemostasis was appreciated. Hemobloast placed over incision site. The peritoneum was grasped with Kellys. Peritoneum was reapproximated using #2 Vicryl suture in a running fashion. Hemablast placed on rectus muscle. Muscle was then reapproximated using #2 Vicryl in an interrupted mattress suture fashion. The fascia was then reapproximated using #1 Vicryl in a running fashion. Subcutaneous layer was evaluated and Bovie was used for any small oozing- subq irritated with NS- #2-0 plain gut suture was then used to reapproximate the subcutaneous layer 4-0 Vicryl on a used to reapproximate the skin in a subcutaneous fashion. Dry sterile dressing was applied. Instrument lap needle count were correct ?2. Anticipated normal postoperative course for this patient. Presentation: Positive for Vertex Amniotic Membrane Rupture Type: Spontaneous Amniotic Fluid Description: Clear Placental Delivery Description: Spontaneous Placenta Disposition: [facility] Cord Vessel Description: 3 Vessels Cord Entanglement: None Cord Gases: ABG and VBG Infant A Gender: Female (1 minute): 8 (5 minute): 9 Delayed Cord Clamping: No Complications Risks of Surgery Discussed w/Patient: Bleeding, Anesthesia Risks, Infection, Need for Future C-Sections, Permanency, Failure Rate of 1 to 2%, Injury to surrounding structure(s) including bowel and bladder and Availability of other non-permanent control options
[2023-08-20] MEDS: Oxytocin 15 Units/NS 250ml 15 UNITS/250 ML IV.SOLN 83 UNITS IV (08:00)
[2023-08-20] MEDS: Ketorolac 30 MG/ML Syringe IV ×3 (08:28→20:38)
--- NOTE | 2023-08-20 09:37 | FALS_PTH ---
PATHOLOGY RESULTS PATIENT: DEREK FLOOD LOC: [facility] U#:[id number] AGE/SX: 32/F ROOM: WP004 RE08/20/[address]: Dr. Monet Donahue MD : 1990 BED: 1 DIS: 08/21/2023 SPEC #: [id number] RECD: 08/20/23 12:00 STATUS: VETO JOSE #: [id number] MONIQUE: 08/20/23 09:[address]: Monet Donahue DEPT: SURGICAL PATHOLOGY RECD BY: Estella Moore ENTERED: 08/20/23 12:01 SP TYPE: FALL TUBES OTHR DR: No Primary Care Phys Tissues: Fallopian tube Procedures: Surgery Specimen Level II HEADER OPERATION: Tubal ligation PRE-OP DIAGNOSIS: Sterilization TISSUE SUBMITTED: Fallopian tubes, suture in left tube MICROSCOPIC DIAGNOSIS Right fallopian tube, salpingectomy: Complete cross-sections of fallopian tube with no pathologic change. Left fallopian tube, salpingectomy: Complete cross-sections of fallopian tube with no pathologic change. AM:piyush 08/21/2023 MICROSCOPIC DESCRIPTION Slides are reviewed. GROSS DESCRIPTION Received in fixative is one container labeled with the patient's name and designated bilateral fallopian tubes, suture in left tube. The specimen consists of bilateral fallopian tubes including fimbrial ends. The right fallopian tube measures 7.0 cm in length and 0.6 cm in diameter and the left fallopian tube measures 7.0 cm in length and 0.6 cm in diameter. Also present in the container is a small segment of detached fallopian tube measuring 1.0 cm in length and 0.4 cm in diameter. Sections reveal unremarkable cut surfaces. Tie Mill Operator sections are submitted in two cassettes as follows: 1 - right fallopian tube, 2??left fallopian tube. / SJ:piyush 08/20/2023 TC:4 CPT: 01443 x2
[2023-08-20 10:00] LABS: Pathology Specimen OB SEE PATHOLOGY REPORT
[2023-08-20] MEDS: Lactated Ringers 1,000 ML 100 ML IV (11:01)
[2023-08-20] MEDS: Acetaminophen 500 MG Tablet 1000 MG PO ×2 (12:02→18:10)
[2023-08-20] MEDS: Senna/Docusate Sodium 1 Tablet PO (12:02)
[2023-08-20] MEDS: 0.9% Saline Lock 10 ML Syringe IV (20:38)
[2023-08-21] MEDS: Acetaminophen 500 MG Tablet 1000 MG PO ×3 (00:14→12:28)
[2023-08-21] MEDS: Ketorolac 30 MG/ML Syringe IV (02:27)
[2023-08-21] MEDS: 0.9% Saline Lock 10 ML Syringe IV (02:27)
[2023-08-21 04:55] VITALS: BP 118/84; PULSE 84; RESP 16; TEMP 36.3
[2023-08-21 05:01] LABS: Mean Corp Hgb Conc 31.3 g/dL (32-36); Mean Corpuscular Hgb 26.2 pg (27.0-32.0); Mean Corpuscular Volume 83.8 fL (81-99); Mean Platelet Vol. 11.3 fl (6.2-12.0); Platelet Count 153 K/mm3 (150-450); RBC Distribution Width CV 14.6 % (11.6-14.6); RBC Distribution Width SD 44.3 fl (35.1-43.9); Red Blood Count 3.82 M/mm3 (4.2-5.4); White Blood Count 10.9 K/mm3 (4.4-11.0)
[2023-08-21] MEDS: Ibuprofen 600 MG Tablet PO ×2 (08:53→14:42)
[2023-08-21] MEDS: Senna/Docusate Sodium 1 Tablet PO (08:53)
[2023-08-21 10:01] VITALS: BP 122/87; PULSE 88; RESP 16; TEMP 36.8
[2023-08-21 14:00] VITALS: BP 117/78; PULSE 88; RESP 16; TEMP 36.6
--- NOTE | 2023-08-21 14:05 | PCM.PN.OB ---
Subjective Subjective Doing well per patient and nursing staff. Ambulating and taking PO without difficulty. Voiding and passing flatus. Pain controlled. , services for assistance. Denies headache, visual changes, chest pain, shortness of breath, leg pain or increased bleeding. Lochia normal. Has cough and congestion, feels like she is getting URI. Objective Data Objective Data Vital Signs: Vital Signs Temp Pulse Resp BP Pulse Ox O2 Del Method 98.2 F 88 16 122/87 H 97 Room Air 08/21/23 10:08/21/23 10:01 08/21/23 10:01 08/21/23 10:01 08/20/23 19:45 08/20/23 19:45 Oxygen Delivery Method Room Air Weight: 149 lb Body Mass Index (BMI) 26.4 Intake & Output: Intake and Output for Last 24 Hours 08/19/23 08/20/23 08/21/23 23:59 23:59 23:59 Intake Total 3011.66 / 3011.66 Output Total 2400 / 2400 600 / 600 Balance 611.66 / 611.66 -600 / -600 Lab / Micro Data 08/21/23 04:54 Labs: Laboratory Results - last 24 hr 08/21/23 04:54: WBC 10.9, RBC 3.82 L, Hgb 10.0 L, Hct 32.0 L, MCV 83.8, MCH 26.2 L, MCHC 31.3 L, RDW Std Deviation 44.3 H, RDW Coeff of Gildardo 14.6, Plt Count 153, MPV 11.3 ROS Constitutional Constitutional: Reports systems reviewed and no addt'l complaints, except as documented; Denies headache(s) Eyes Eyes: Denies acute decrease in peripheral vision, blurry vision or change in vision ENT HEENT: Reports systems reviewed and no addt'l complaints, except as documented Cardiovascular Cardiovascular: Denies chest pain or dizziness Respiratory/Chest Respiratory/Chest: Denies cough, dyspnea, dyspnea on exertion, shortness of breath at rest or shortness of breath with exertion Gastrointestinal Gastrointestinal: Denies abdominal pain, diarrhea, nausea or vomiting Genitourinary Genitourinary: Denies abdominal discomfort Musculoskeletal Musculoskeletal: Denies limited range of motion Integumentary Integumentary: Reports systems reviewed and no addt'l complaints, except as documented Neurologic Neurologic: Reports systems reviewed and no addt'l complaints, except as documented Psychiatric Psychiatric: Reports systems reviewed and no addt'l complaints, except as documented Endocrine Endocrinology: Reports systems reviewed and no addt'l complaints, except as documented Hematologic/Lymphatic Hematologic/Lymphatic: Reports systems reviewed and no addt'l complaints, except as documented Allergic/Immunologic Allergic/Immunologic: Reports systems reviewed and no addt'l complaints, except as documented Physical Exam Const alert and oriented x3 General Appearance: cooperative Orientation / Consciousness: awake, oriented to person, oriented to place and oriented to time Exam Limitations: no limitations HEENT normocephalic Head and Scalp: normal to inspection, normocephalic and atraumatic Face and Sinus: normal facial exam Eyes General Eye: normal appearance of both eyes Neck full ROM Chest Chest: symmetrical chest wall rise Resp normal respiratory effort and normal air movement Auscultation: clear to auscultation bilaterally Cardio regular rate, regular rhythm, S1 normal heart sound, S2 normal heart sound, no murmurs, no rub, no gallops and no clicks GI normal to inspection, nondistended, normoactive bowel sounds and non-tender GI Narrative: dressing clean, dry and intact. Fundus firm 2 below U appearance of the vagina normal Bladder / Kidney Exam: no CVA tenderness Back/Spine normal ROM Extremity normal to inspection and full ROM Skin no rashes or lesions noted Neuro oriented x3, CN's II-XII intact bilaterally and moves all extremities Sensorium / Orientation: awake, alert and oriented to person Motor Exam: clonus absent Deep Tendon Reflexes: Rt Patellar (L4): 2+ and Lt Patellar (L4): 2+ Assessment & Plan (1) Failed vacuum extraction delivery: (2) Failed trial of labor following previous , antepartum: (3) Status post section: PLAN: Plan 1) POD#1 Failed TOLAC and vacuum 2) VSS 3) Pain management 4) I&O 5) Requesting D/C home today 6) Follow up in 1 week for incision check and 6 week PP.
--- NOTE | 2023-08-21 14:09 | DS.PCM_ITS ---
Providers Date of Admission: 08/20/23 Date of Discharge: 08/21/23 Primary Care Physician: Jemima Primary Care Phys Reason For Visit: LABOR Diagnosis Discharge Diagnosis (1) Failed vacuum extraction delivery: Status: Acute Code(s): O66.5 - Attempted application of vacuum extractor and forceps (2) Failed trial of labor following previous , antepartum: Status: Acute Code(s): O66.41 - Failed attempted vaginal after previous delivery (3) Status post section: Status: Acute Code(s): Z98.891 - History of uterine scar from previous surgery Plan 1) POD#1 Failed TOLAC and vacuum 2) VSS 3) Pain management 4) I&O 5) Requesting D/C home today 6) Follow up in 1 week for incision check and 6 week PP. Medications at Discharge Home Medications vitamin-ferrous fumarate 40 mg iron-folic acid 1 mg tablet 1 tab PO DAILY 09/17/22 ferrous sulfate 325 mg (65 mg iron) tablet,delayed release 325 mg PO DAILY anemia 08/18/23 acetaminophen 500 mg tablet 1,000 mg (2 x 500 mg) PO Q6H #0 tabs 08/21/23 ibuprofen 600 mg tablet 600 mg PO Q6H #0 tabs 08/21/23 sennosides 8.6 mg-docusate sodium 50 mg tablet (Stool Softener-Stimulant Laxati ve) 1 - 2 tab PO DAILY #0 tabs 08/21/23 Hospital Course Summary of Care Provided Minutes Spent on Discharge: 15 Hospital Course: Presented on 08/20 for TOLAC. Failed TOLAC and vacuum extraction. Repeat LTCS. Normal PP course Weight / BMI Weight Weight: 149 lb Body Mass Index (BMI) 26.4 ABG / Lab / Microbiology Data 08/21/23 04:54 Laboratory: Laboratory Results - last 24 hr 08/21/23 04:54: WBC 10.9, RBC 3.82 L, Hgb 10.0 L, Hct 32.0 L, MCV 83.8, MCH 26.2 L, MCHC 31.3 L, RDW Std Deviation 44.3 H, RDW Coeff of Gildardo 14.6, Plt Count 153, MPV 11.3 D/C Instructions Discharge Diet: No restrictions Discharge Activity: Return to Normal Activity, May Not Drive and May Shower May resume sexual activity in: 6 weeks Weight Bearing Status: Full weight bearing Lifting Restricted to (Lbs): 20 Call your doctor if your incision/area has: Continuous Slow Oozing, Sudden Increased Bleeding, Increased Pain/ Swelling, Increased Redness, Foul Smelling Discharge and Swelling at the incision site Call your doctor if you observe: Fever of 101 or Higher, Change in Color, Inability to urinate, Inability to have a bowel movement, Using more than 1 pad per hour, Shortness of breath, Dizziness, Chest pain, Increased palpitations (irregular heartbeat), Calf discomfort and Uncontrolled pain Suture Line Care: Avoid Pulling/Pushing and Avoid Pinching/Bending Remove Dressing in: 4 days Cleanse incision/area with: Soap & Water When: Follow up for incision check in one week and 6 week PP visit Meaningful Use Info Meaningful Use Diagnoses (Choose all that apply): None applicable Discharge Plan Admission Admit Date/Time: 08/20/23 00:23 Primary Reason for Your Visit: Repeat section Attending Provider: Monet Bain Primary Care Provider: Care Physician,Jemima Primary Discharge Orders/Prescriptions Prescriptions: New acetaminophen 500 mg Tablet 1,000 mg PO Q6H Qty: 0 0RF sennosides-docusate sodium [Stool Softener-Stimulant Laxat] 8.6-50 mg Tablet 1 - 2 tab PO DAILY Qty: 0 0RF ibuprofen 600 mg Tablet 600 mg PO Q6H Qty: 0 0RF Continued (w/o vit A)-Fe fum-FA 40 mg iron-1 mg Tablet 1 tab PO DAILY ferrous sulfate 325 mg (65 mg iron) tablet,delayed release (DR/EC) 325 mg PO DAILY Referrals / Follow Up: Care Physician,No Primary [Primary Care Provider] - Disposition Disposition (needs filled in before D/C Order can be placed): Home, Self Care
== END 2023-08-21 15:50 | disposition home or self-care (01) | DRG 785 ==
LOC: WPOUT 00:25 → WP 00:25
PROVIDERS: Admitting Provider Obstetrics & Gynecology; Referring Provider Obstetrics & Gynecology; Visit Provider Obstetrics & Gynecology
DX: O76 Abnormality in fetal heart rate and rhythm complicating labor and delivery (principal); O32.4XX0 Maternal care for high head at term, not applicable or unspecified; O75.81 Maternal exhaustion complicating labor and delivery; O34.219 Maternal care for unspecified type scar from previous cesarean delivery; O42.92 Full-term premature rupture of membranes, unspecified as to length of time between rupture and onset of labor; O66.5 Attempted application of vacuum extractor and forceps; O66.41 Failed attempted vaginal birth after previous cesarean delivery; Z37.0 Single live birth; Z3A.40 40 weeks gestation of pregnancy; Z87.59 Personal history of other complications of pregnancy, childbirth and the puerperium
CPT/HCPCS: 59025; 59050; 84112; 85025; 85027; 86780; 86850; 86900; 86901; 88302; 99221; J7120; A4216; G0378; J2405